=== PATIENT | female | born 1945 | race Caucasian/White ===

== ENCOUNTER 2018-03-07 19:40 | Emergency (ER) | payer MEDICARE, BC ==
[2018-03-07] MEDS: DIPHTH/TET/ACEL PERTUSS (ADULT) 0.5 ML VIAL IM* (23:18)
== END 2018-03-08 00:16 | disposition home or self-care (01) ==
LOC: FTE 03-08 00:16
DX: S51.812A Laceration without foreign body of left forearm, initial encounter (principal); R40.2412 Glasgow coma scale score 13-15, at arrival to emergency department; S01.311A Laceration without foreign body of right ear, initial encounter; W22.8XXA Striking against or struck by other objects, initial encounter; Y92.9 Unspecified place or not applicable; Z23 Encounter for immunization; Z96.642 Presence of left artificial hip joint
CPT/HCPCS: 12001; 70450; 90471; 90715; 99284-25